=== PATIENT | female | born 1960 | race Caucasian/White ===

== ENCOUNTER 2016-07-05 11:30 | Observation (INO) | payer OTHER ==
[~2016-07-05] VITALS: Ht 177.8 cm; Wt 70.0 kg
[~2016-07-05 11:30] MED LIST: PROM25TA5 PO; ULTR50TA5 PO
[2016-07-05 11:32] VITALS: BP 122/75; PULSE 85; RESP 14; TEMP 97.9; O2SAT 97
--- NOTE | 2016-07-05 14:29 | PD ---
HPI Chief Complaint: GI Complaint Time Seen by Provider: 14:25 Travel History International Travel<30 days: No Contact w/Intl Traveler<30days: No Traveled to known affect area: No History of Present Illness HPI Patient is a 55-year-old female presenting to the chart evaluation of nausea, vomiting, diarrhea, abdominal pain. Patient states her symptoms started around 11 PM last night. She reports seeing dark red blood in her stools, she states she believes is from her hemorrhoids and the fact that she's been having such frequent bowel movements. Patient states this is the fourth time this has happened in this month, usually her symptoms will last for 2 days. She was at her primary doctor's office the last time this happened and he prescribed Zofran. There were no stool studies performed. Patient denies any fevers but reports chills. Patient had a bowel resection secondary to colon cancer in January 2016. She has not had any chemotherapy or radiation. Dr. Gonzalez was a surgeon for that operation. Her primary care providers Dr. Jaffe. [facility] Past Medical History Cancer: Yes (:) Cardiovascular Problems: No Diabetes: No Endocrine: No Genitourinary: No Hepatitis: No Hiatal Hernia: No Immune Disorder: No Musculoskeletal: No Neurologic: No Psychiatric: Yes Reproductive: No Respiratory: No Thyroid Disease: No ?: Not Menopausal: Yes Past Surgical History Abdominal Surgery: Yes (EXP LAP S/P RUPTURED CYST 1987) AICD: No Gynecologic Surgery: Yes Joint Replacement: No Pacemaker: No Other Surgery: Yes (bowel resection) Social History Alcohol Use: Yes (APPROX 1-2 PER WEEK) Tobacco Use: No Substance Use: No Allergies-Medications (Allergen,Severity, Reaction): Coded Allergies: Penicillin (Verified Allergy, Unknown, CHILDHOOD, 03/23/16) Reported Meds & Prescriptions Reported Meds & Active Scripts Active Phenergan (Promethazine HCl) 25 Mg Tab 25 Mg PO Q6H PRN Review of Systems Except as stated in HPI: all other systems reviewed are Neg General / Constitutional: Positive: Chills HENT: No: Headaches Cardiovascular: No: Chest Pain or Discomfort Respiratory: No: Shortness of Breath Gastrointestinal: Positive: Nausea, Vomiting, Diarrhea, Abdominal Pain Genitourinary: No: Dysuria Neurologic: Positive: Weakness, No: Dizziness, Syncope, Focal Abnormalities Physical Exam Narrative GENERAL: Well-developed, well-nourished, alert female. Appears ill, in no acute distress. SKIN: Warm and dry. HEAD: Atraumatic. Normocephalic. EYES: Pupils equal and round. No scleral icterus. No injection or drainage. ENT: No nasal bleeding or discharge. Mucous membranes pink and moist. NECK: Trachea midline. No JVD. CARDIOVASCULAR: Regular rate and rhythm. No murmur appreciated. RESPIRATORY: No accessory muscle use. Clear to auscultation. Breath sounds equal bilaterally. GASTROINTESTINAL: Abdomen soft, tender to palpation in bilateral lower quadrants. Hepatic and splenic margins not palpable. Abdomen bowel sounds. Positive guarding, no rebound. MUSCULOSKELETAL: No obvious deformities. No clubbing. No cyanosis. No edema. NEUROLOGICAL: Awake and alert. No obvious cranial nerve deficits. Motor grossly within normal limits. Normal speech. PSYCHIATRIC: Appropriate mood and affect; insight and judgment normal. Data Data Last Documented VS Vital Signs Date Time Temp Pulse Resp B/P Pulse Ox O2 Delivery O2 Flow Rate FiO2 07/05/16 18:12 84 18 104/72 97 Room Air 07/05/16 11:32 97.9 Orders Complete Blood Count With Diff (07/05/16 14:23) Comprehensive Metabolic Panel (07/05/16 14:23) Lipase (07/05/16 14:23) Lactic Acid (07/05/16 14:23) Urinalysis - C+S If Indicated (07/05/16 14:23) Abdomen, Kub Only (07/05/16 14:23) Ondansetron Inj (Zofran Inj) (07/05/16 16:15) Sodium Chlor 0.9% 1000 Ml Inj (Ns 1000 M (07/05/16 16:15) Sodium Chlor 0.9% 1000 Ml Inj (Ns 1000 M (07/05/16 16:15) Ct Abd/Pel W Iv Contrast(Rout) (07/05/16 ) Morphine Inj (Morphine Inj) (07/05/16 16:45) Iohexol 350 Inj (Omnipaque 350 Inj) (07/05/16 17:10) C Diff Toxin Pcr (07/05/16 18:35) Ciprofloxacin 400 Mg Premix (Cipro 400 M (07/05/16 18:45) Metronidazole 500 Mg Inj (Flagyl 500 Mg (07/05/16 18:45) Consult Colorectal Surgery (07/05/16 ) Admit Order (Ed Use Only) (07/05/16 19:16) Labs Laboratory Tests Test 07/05/16 15:40 White Blood Count 15.4 TH/MM3 Red Blood Count 5.03 MIL/MM3 Hemoglobin 15.2 GM/DL Hematocrit 43.3 % Mean Corpuscular Volume 86.1 FL Mean Corpuscular Hemoglobin 30.3 PG Mean Corpuscular Hemoglobin 35.2 % Concent Red Cell Distribution Width 13.4 % Platelet Count 388 TH/MM3 Mean Platelet Volume 7.8 FL Neutrophils (%) (Auto) 87.8 % Lymphocytes (%) (Auto) 5.3 % Monocytes (%) (Auto) 6.4 % Eosinophils (%) (Auto) 0.2 % Basophils (%) (Auto) 0.3 % Neutrophils # (Auto) 13.5 TH/MM3 Lymphocytes # (Auto) 0.8 TH/MM3 Monocytes # (Auto) 1.0 TH/MM3 Eosinophils # (Auto) 0.0 TH/MM3 Basophils # (Auto) 0.1 TH/MM3 CBC Comment DIFF FINAL Differential Comment Sodium Level 139 MEQ/L Potassium Level 4.2 MEQ/L Chloride Level 105 MEQ/L Carbon Dioxide Level 24.0 MEQ/L Anion Gap 10 MEQ/L Blood Urea Nitrogen 14 MG/DL Creatinine 1.01 MG/DL Estimat Glomerular Filtration 57 ML/MIN Rate Random Glucose 91 MG/DL Lactic Acid Level 1.2 mmol/L Calcium Level 9.1 MG/DL Total Bilirubin 0.8 MG/DL Aspartate Amino Transf 17 U/L (AST/SGOT) Alanine Aminotransferase 22 U/L (ALT/SGPT) Alkaline Phosphatase 94 U/L Total Protein 7.8 GM/DL Albumin 3.7 GM/DL Lipase 147 U/L MDM Medical Decision Making Medical Screen Exam Complete: Yes Emergency Medical Condition: Yes Medical Record Reviewed: Yes Interpretation(s) Vital Signs Date Time Temp Pulse Resp B/P Pulse Ox O2 Delivery O2 Flow Rate FiO2 07/05/16 11:32 97.9 85 14 122/75 97 Differential Diagnosis Bowel obstruction versus gastroenteritis versus C. difficile versus irritable bowel syndrome versus other Narrative Course Patient is a 55-year-old female presenting to emergency room for evaluation of diarrhea, abdominal pain, nausea, vomiting. Patient has had several bouts similar to this over the last month. She was evaluated by her primary care provider who prescribed Zofran. Patient states she is unable to keep that down at this time. Workup initiated in triage, care patient be transferred to provider when a medical bed is available. Sharon Maya Jul 05, 2016 14:29
--- NOTE | 2016-07-05 14:56 | RADRPT ---
EXAM DATE/TIME: 07/05/2016 14:40 [facility] COMPARISON: No previous studies available for comparison. INDICATIONS : Abdominal pain. MEDICAL HISTORY : Diverticulitis. SURGICAL HISTORY : Colon resection. ENCOUNTER: Initial ACUITY: 1 month PAIN SCORE: 6/10 LOCATION: Bilateral lower quadrant abdomen FINDINGS: Supine view of the abdomen was performed. The abdominal bowel gas pattern is normal. No abnormal ma sses, calcifications, or organomegaly is seen. The osseous structures are unremarkable. Copious amou nt of stool in the rectum. CONCLUSION: Copious stool in the rectum. Jose Obrien MD on July 05, 2016 at 14:53 Board Certified Radiologist. This report was verified electronically.
[2016-07-05 15:51] VITALS: BP 91/51; PULSE 72; RESP 14; O2SAT 97
[2016-07-05 15:59] LABS: AUTOMATED NEUTROPHIL # 13.5 TH/MM3 (1.8-7.7); BASOPHIL # 0.1 TH/MM3 (0-0.2); BASOPHIL % 0.3 % (0.0-2.0); EOSINOPHIL % 0.2 % (0.0-4.0); HEMATOCRIT 43.3 % (35.0-46.0); HEMO FLAGS DIFF FINAL; LYMPH % 5.3 % (9.0-44.0); LYMPHOCYTE # 0.8 TH/MM3 (1.0-4.8); MEAN CELL VOLUME 86.1 FL (80.0-100.0); MEAN CORPUSCULAR HEMOGLOBIN 30.3 PG (27.0-34.0); MEAN CORPUSCULAR HGB CONC 35.2 % (32.0-36.0); MONO % 6.4 % (0.0-8.0); NEUT % 87.8 % (16.0-70.0); PLATELET COUNT 388 TH/MM3 (150-450); RED BLOOD COUNT 5.03 MIL/MM3 (4.00-5.30); RED CELL DISTRIBUTION WIDTH 13.4 % (11.6-17.2); WHITE BLOOD COUNT 15.4 TH/MM3 (4.0-11.0)
[2016-07-05] MEDS ORDERED: SODIUM CHLOR 0.9% 1000 ML INJ 1,000 ML IV ONE ×2 (16:15)
[2016-07-05] MEDS ORDERED: ONDANSETRON HCL 4 MG/2 ML VIAL IV ONE (16:15)
--- NOTE | 2016-07-05 16:25 | PD ---
Data Data Last Documented VS Orders Complete Blood Count With Diff (07/05/16 14:23) Comprehensive Metabolic Panel (07/05/16 14:23) Lipase (07/05/16 14:23) Lactic Acid (07/05/16 14:23) Urinalysis - C+S If Indicated (07/05/16 14:23) Abdomen, Kub Only (07/05/16 14:23) Ondansetron Inj (Zofran Inj) (07/05/16 16:15) Sodium Chlor 0.9% 1000 Ml Inj (Ns 1000 M (07/05/16 16:15) Sodium Chlor 0.9% 1000 Ml Inj (Ns 1000 M (07/05/16 16:15) Ct Abd/Pel W Iv Contrast(Rout) (07/05/16 ) Morphine Inj (Morphine Inj) (07/05/16 16:45) Iohexol 350 Inj (Omnipaque 350 Inj) (07/05/16 17:10) Ciprofloxacin 400 Mg Premix (Cipro 400 M (07/05/16 18:45) Metronidazole 500 Mg Inj (Flagyl 500 Mg (07/05/16 18:45) Admit Order (Ed Use Only) (07/05/16 19:16) Labs MDM Supervised Visit with NIESHA: Yes Narrative Course Assumed care of patient. Is a 55-year-old woman who is a history of a bowel resection for colon cancer in March [address] Gonzalez found on screening colonoscopy, not requiring chemotherapy or radiation therapy. She did well. She states that she no longer has a reservoir stool and has urgency when she defecates, but had been her usual state health until the past month. For the past month she had intermittent bouts of nausea vomiting diarrhea and lower abdominal pain. She saw her primary doctor, Dr. Jaffe, place her on some Zofran. She had worsening symptoms over the past week and so she came to the emergency department. She's also noticed some blood in her stool sutured a hemorrhoid that she has. On exam: Patient looks generally well. She is moderate lower abdominal tenderness to palpation. On rectal exam she has one inflamed hemorrhoid at is a little bit ulcerated. She has soft stool in the rectal vault without obvious impaction. Studies show: LABS: CBC remarkable for mild leukocytosis. CMP pending Lactate pending Lipase pending Abdominal x-ray demonstrated copious stool in the rectum. Scripts Metronidazole (Flagyl)500 Mg [id number] Mg PO TID #15 TAB Ref 0 Prov:Afshan Telles 07/07/16 Levofloxacin (Levaquin)500 Mg [id number] Mg PO DAILY #5 TAB Ref 0 Prov:[place],Afshan MORROW 07/07/16 Shaquille Campos MD Jul 05, 2016 16:24 Eosinophils (%) (Auto) 0.2 % Basophils (%) (Auto) 0.3 % Neutrophils # (Auto) 13.5 TH/MM3 Lymphocytes # (Auto) 0.8 TH/MM3 Monocytes # (Auto) 1.0 TH/MM3 Eosinophils # (Auto) 0.0 TH/MM3 Basophils # (Auto) 0.1 TH/MM3 CBC Comment DIFF FINAL Differential Comment MDM Supervised Visit with NIESHA: Yes Narrative Course Assumed care of patient. Is a 55-year-old woman who is a history of a bowel resection for colon cancer in March [address] Gonzalez found on screening colonoscopy, not requiring chemotherapy or radiation therapy. She did well. She states that she no longer has a reservoir stool and has urgency when she defecates, but had been her usual state health until the past month. For the past month she had intermittent bouts of nausea vomiting diarrhea and lower abdominal pain. She saw her primary doctor, Dr. Jaffe, place her on some Zofran. She had worsening symptoms over the past week and so she came to the emergency department. She's also noticed some blood in her stool sutured a hemorrhoid that she has. On exam: Patient looks generally well. She is moderate lower abdominal tenderness to palpation. On rectal exam she has one inflamed hemorrhoid at is a little bit ulcerated. She has soft stool in the rectal vault without obvious impaction. Studies show: LABS: CBC remarkable for mild leukocytosis. CMP pending Lactate pending Lipase pending Abdominal x-ray demonstrated copious stool in the rectum. Shaquille Campos MD Jul 05, 2016 16:24
[2016-07-05] MEDS ORDERED: MORPHINE SULFATE 4 MG/ML INJ IV PUSH ONE ×2 (16:45→19:30)
[2016-07-05 16:53] LABS: ALKALINE PHOSPHATASE 94 U/L (45-117); ALT (GPT) 22 U/L (10-53); ANION GAP 10 MEQ/L (5-15); AST (GOT) 17 U/L (15-37); BLOOD UREA NITROGEN 14 MG/DL (7-18); CHLORIDE 105 MEQ/L (98-107); GLOMERULAR FILTRATION RATE 57 ML/MIN (>89); POTASSIUM 4.2 MEQ/L (3.5-5.1); SODIUM (NA) 139 MEQ/L (136-145); TOTAL BILIRUBIN ADULT 0.8 MG/DL (0.2-1.0)
[2016-07-05] MEDS ORDERED: IOHEXOL 350 MG/ML 10 ML VIAL (for RAD DIAG) IV ONE (17:10)
--- NOTE | 2016-07-05 17:24 | RADRPT ---
EXAM DATE/TIME: 07/05/2016 17:03 [facility] COMPARISON: CT ABDOMEN & PELVIS W CONTRAST, March 30, 2011, 12:57. INDICATIONS : Nausea, vomiting, diarrhea, and diffuse abdominal pain. IV CONTRAST: 97 cc Omnipaque 350 (iohexol) IV ORAL CONTRAST: No oral contrast ingested. RADIATION DOSE: 7.35 CTDIvol (mGy) MEDICAL HISTORY : None Carcinoma, colon. SURGICAL HISTORY : [employer] surgery. Colon tumor removal. ENCOUNTER: Initial ACUITY: 2 days PAIN SCALE: 4/10 LOCATION: Diffuse abdomen/pelvis TECHNIQUE: Volumetric scanning of the abdomen and pelvis was performed. Using automated exposure control and ad justment of the mA and/or kV according to patient size, radiation dose was kept as low as reasonably achievable to obtain optimal diagnostic quality images. FINDINGS: LOWER LUNGS: The visualized lower lungs are clear. LIVER: Liver is hypodense compared to the spleen. A wedged shaped area in the right hepatic lobe has similar density to the spleen. There are no discrete suspicious hepatic lesions. SPLEEN: Normal size without lesion. PANCREAS: Within normal limits. KIDNEYS: Normal in size and shape. There is no mass, stone or hydronephrosis. ADRENAL GLANDS: Within normal limits. VASCULAR: There is no aortic aneurysm. BOWEL/MESENTERY: Significant amount of retained stool is identified both in the proximal and distal colon. Along the p roximal descending colon there is focal pericolonic inflammation and a small diverticulum or extraint estinal collection of air. The is identified along the left paracolic gutter and in the pelvis. Anast omotic suture is identified in the region of the rectum which appears intact. There is no evidence of associated mass or inflammation in this area. ABDOMINAL WALL: Within normal limits. RETROPERITONEUM: There is no lymphadenopathy. BLADDER: No wall thickening or mass. REPRODUCTIVE: Within normal limits. INGUINAL: There is no lymphadenopathy or hernia. MUSCULOSKELETAL: Within normal limits for patient age. CONCLUSION: Proximal descending colon inflammatory process with pericolonic stranding and a small diverticulum or extra intestinal gas bubble. There is no adjacent abscess. Free fluid in the abdomen and pelvis. Significant amount retained stool in both the proximal and distal colon. Suspected hepatic steatosis with focal fatty sparing in the right hepatic lobe as described. No findings suspicious for metastatic disease. Homer Gayle MD on July 05, 2016 at 17:13 Board Certified Radiologist. This report was verified electronically.
[2016-07-05 18:12] VITALS: BP 104/72; PULSE 84; RESP 18; O2SAT 97
[2016-07-05] MEDS ORDERED: CIPROFLOXACIN 400 MG PREMIX 200 ML IV ONE (18:45)
[2016-07-05] MEDS ORDERED: metroNIDAZOLE 500 MG INJ 100 ML IV ONE (18:45)
--- NOTE | 2016-07-05 19:15 | PD ---
Physical Exam Date Seen by Provider: Jul 05, 2016 Data Data Last Documented VS Vital Signs Date Time Temp Pulse Resp B/P Pulse Ox O2 Delivery O2 Flow Rate FiO2 07/05/16 18:12 84 18 104/72 97 Room Air 07/05/16 11:32 97.9 Orders Complete Blood Count With Diff (07/05/16 14:23) Comprehensive Metabolic Panel (07/05/16 14:23) Lipase (07/05/16 14:23) Lactic Acid (07/05/16 14:23) Urinalysis - C+S If Indicated (07/05/16 14:23) Abdomen, Kub Only (07/05/16 14:23) Ondansetron Inj (Zofran Inj) (07/05/16 16:15) Sodium Chlor 0.9% 1000 Ml Inj (Ns 1000 M (07/05/16 16:15) Sodium Chlor 0.9% 1000 Ml Inj (Ns 1000 M (07/05/16 16:15) Ct Abd/Pel W Iv Contrast(Rout) (07/05/16 ) Morphine Inj (Morphine Inj) (07/05/16 16:45) Iohexol 350 Inj (Omnipaque 350 Inj) (07/05/16 17:10) C Diff Toxin Pcr (07/05/16 18:35) Ciprofloxacin 400 Mg Premix (Cipro 400 M (07/05/16 18:45) Metronidazole 500 Mg Inj (Flagyl 500 Mg (07/05/16 18:45) Labs Laboratory Tests Test 07/05/16 15:40 White Blood Count 15.4 TH/MM3 Red Blood Count 5.03 MIL/MM3 Hemoglobin 15.2 GM/DL Hematocrit 43.3 % Mean Corpuscular Volume 86.1 FL Mean Corpuscular Hemoglobin 30.3 PG Mean Corpuscular Hemoglobin 35.2 % Concent Red Cell Distribution Width 13.4 % Platelet Count 388 TH/MM3 Mean Platelet Volume 7.8 FL Neutrophils (%) (Auto) 87.8 % Lymphocytes (%) (Auto) 5.3 % Monocytes (%) (Auto) 6.4 % Eosinophils (%) (Auto) 0.2 % Basophils (%) (Auto) 0.3 % Neutrophils # (Auto) 13.5 TH/MM3 Lymphocytes # (Auto) 0.8 TH/MM3 Monocytes # (Auto) 1.0 TH/MM3 Eosinophils # (Auto) 0.0 TH/MM3 Basophils # (Auto) 0.1 TH/MM3 CBC Comment DIFF FINAL Differential Comment Sodium Level 139 MEQ/L Potassium Level 4.2 MEQ/L Chloride Level 105 MEQ/L Carbon Dioxide Level 24.0 MEQ/L Anion Gap 10 MEQ/L Blood Urea Nitrogen 14 MG/DL Creatinine 1.01 MG/DL Estimat Glomerular Filtration 57 ML/MIN Rate Random Glucose 91 MG/DL Lactic Acid Level 1.2 mmol/L Calcium Level 9.1 MG/DL Total Bilirubin 0.8 MG/DL Aspartate Amino Transf 17 U/L (AST/SGOT) Alanine Aminotransferase 22 U/L (ALT/SGPT) Alkaline Phosphatase 94 U/L Total Protein 7.8 GM/DL Albumin 3.7 GM/DL Lipase 147 U/L [facility] Medical Record Reviewed: Yes Supervised Visit with NIESHA: Yes Interpretation(s) Vital Signs Date Time Temp Pulse Resp B/P Pulse Ox O2 Delivery O2 Flow Rate FiO2 07/05/16 18:12 84 18 104/72 97 Room Air 07/05/16 15:51 72 14 91/51 97 Room Air 07/05/16 11:32 97.9 85 14 122/75 97 Laboratory Tests Test 07/05/16 15:40 White Blood Count 15.4 TH/MM3 (4.0-11.0) Red Blood Count 5.03 MIL/MM3 (4.00-5.30) Hemoglobin 15.2 GM/DL (11.6-15.3) Hematocrit 43.3 % (35.0-46.0) Mean Corpuscular Volume 86.1 FL (80.0-100.0) Mean Corpuscular Hemoglobin 30.3 PG (27.0-34.0) Mean Corpuscular Hemoglobin 35.2 % Concent (32.0-36.0) Red Cell Distribution Width 13.4 % (11.6-17.2) Platelet Count 388 TH/MM3 (150-450) Mean Platelet Volume 7.8 FL (7.0-11.0) Neutrophils (%) (Auto) 87.8 % (16.0-70.0) Lymphocytes (%) (Auto) 5.3 % (9.0-44.0) Monocytes (%) (Auto) 6.4 % (0.0-8.0) Eosinophils (%) (Auto) 0.2 % (0.0-4.0) Basophils (%) (Auto) 0.3 % (0.0-2.0) Neutrophils # (Auto) 13.5 TH/MM3 (1.8-7.7) Lymphocytes # (Auto) 0.8 TH/MM3 (1.0-4.8) Monocytes # (Auto) 1.0 TH/MM3 (0-0.9) Eosinophils # (Auto) 0.0 TH/MM3 (0-0.4) Basophils # (Auto) 0.1 TH/MM3 (0-0.2) CBC Comment DIFF FINAL Differential Comment Sodium Level 139 MEQ/L (136-145) Potassium Level 4.2 MEQ/L (3.5-5.1) Chloride Level 105 MEQ/L (98-107) Carbon Dioxide Level 24.0 MEQ/L (21.0-32.0) Anion Gap 10 MEQ/L (5-15) Blood Urea Nitrogen 14 MG/DL (7-18) Creatinine 1.01 MG/DL (0.50-1.00) Estimat Glomerular Filtration 57 ML/MIN (>89) Rate Random Glucose 91 MG/DL (74-106) Lactic Acid Level 1.2 mmol/L (0.4-2.0) Calcium Level 9.1 MG/DL (8.5-10.1) Total Bilirubin 0.8 MG/DL (0.2-1.0) Aspartate Amino Transf 17 U/L (15-37) (AST/SGOT) Alanine Aminotransferase 22 U/L (10-53) (ALT/SGPT) Alkaline Phosphatase 94 U/L (45-117) Total Protein 7.8 GM/DL (6.4-8.2) Albumin 3.7 GM/DL (3.4-5.0) Lipase 147 U/L (73-393) Last Impressions Abdomen X-Ray 07/05/16 1423 Signed Impressions: Service Date/Time: Tuesday, July 05, 2016 14:40 - CONCLUSION: Copious stool in the rectum. Jose Obrien MD Abdomen/Pelvis CT 07/05/16 0000 Signed Impressions: Service Date/Time: Tuesday, July 05, 2016 17:03 - CONCLUSION: Proximal descending colon inflammatory process with pericolonic stranding and a small diverticulum or extra intestinal gas bubble. There is no adjacent abscess. Free fluid in the abdomen and pelvis. Significant amount retained stool in both the proximal and distal colon. Suspected hepatic steatosis with focal fatty sparing in the right hepatic lobe as described. No findings suspicious for metastatic disease. Homer Gayle MD Narrative Course Patient is a 55-year-old female who presents to emergency room with complaints of abdominal pain with nausea vomiting diarrhea. She recently had a colon resection for colon cancer by Dr. Gonzalez's in March 2016. Patient reports that she's been having intermittent abdominal pain with increased nausea vomiting, reports diarrhea started yesterday. Patient did follow up with primary care doctor who started her on Zofran, reports that symptoms have not been helping. Denies any recent antibiotic ingestion. Patient here for evaluation of abdominal pain with nausea vomiting diarrhea. CBC & BMP Diagram 07/05/16 15:40 Last Impressions Abdomen X-Ray 07/05/16 1423 Signed Impressions: Service Date/Time: Tuesday, July 05, 2016 14:40 - CONCLUSION: Copious stool in the rectum. Jose Obrien MD Abdomen/Pelvis CT 07/05/16 0000 Signed Impressions: Service Date/Time: Tuesday, July 05, 2016 17:03 - CONCLUSION: Proximal descending colon inflammatory process with pericolonic stranding and a small diverticulum or extra intestinal gas bubble. There is no adjacent abscess. Free fluid in the abdomen and pelvis. Significant amount retained stool in both the proximal and distal colon. Suspected hepatic steatosis with focal fatty sparing in the right hepatic lobe as described. No findings suspicious for metastatic disease. Homer Gayle MD I reviewed all labs and all studies with patient in detail. Patient with colitis. Case is reviewed with Dr. Carlos pt's colorectal surgeon. Case also reviewed with Dr. Osacr accepts patient to service. Request that patient be admitted under Dr. Krueger Physician Communication Physician Communication Case reviewed with Dr. Oscar as well as Dr. Gonzalez's Diagnosis Primary Impression: Colitis Admitting Information Admitting Physician Requests: Admit Afshan Goel DO Jul 05, 2016 19:15
[2016-07-05 19:26] VITALS: BP 108/72; PULSE 80; RESP 18; O2SAT 97
[2016-07-05 20:44] VITALS: BP 88/55; PULSE 75; RESP 16; O2SAT 98
--- NOTE | 2016-07-05 20:52 | HHI.HP ---
HPI Service [facility] Hospitalists Primary Care Physician Camden Jaffe MD Admission Diagnosis Colitis Chief Complaint: abd pain, diarrhea, n/v Travel History International Travel<30 Days: No Contact w/Intl Traveler <30 Da: No Traveled to Known Affected Are: No History of Present Illness Patient is a 55-year-old female with history of rectosigmoid carcinoma presenting to the ER for evaluation of nausea, vomiting, diarrhea, abdominal pain. Patient states her symptoms started around 11 PM last night. She reports seeing dark red blood in her stools, which she states she believes is from her hemorrhoids and the fact that she's been having such frequent bowel movements. Patient states this is the fourth time this has happened in this month. Usually her symptoms will last for 2 to 3 days. She was at her primary doctor's office the last time this happened and he prescribed Zofran. There were no stool studies performed. Patient denies any fevers but reports chills. Patient had a partial bowel resection secondary to colon cancer in March 2016. She has not had any chemotherapy or radiation. Dr. Gonzalez was a surgeon for that operation. Her primary care providers Dr. Jaffe. Last episode of vomiting was earlier today. She has been having multiple episodes of diarrhea over the last 24 hours. No foreign travel. Reportedly has distant history of diverticulitis as well. Review of Systems Constitutional: COMPLAINS OF: Fatigue, Weight loss, Chills, DENIES: Diaphoretic episodes, Fever, Weight gain, Dizziness, Change in appetite, Night Sweats Eyes: DENIES: Blurred vision, Diplopia, Eye inflammation, Eye pain, Vision loss , Photosensitivity, Double Vision Ears, nose, mouth, throat: DENIES: Tinnitus, Hearing loss, Vertigo, Nasal discharge, Oral lesions, Throat pain, Hoarseness, Ear Pain, Running Nose, Epistaxis, Sinus Pain, Toothache, Odynophagia Respiratory: DENIES: Apneas, Cough, Snoring, Wheezing, Hemoptysis, Sputum production, Shortness of breath Cardiovascular: DENIES: Chest pain, Palpitations, Syncope, Dyspnea on Exertion , PND, Lower Extremity Edema, Orthopnea, Claudication Gastrointestinal: COMPLAINS OF: Abdominal pain, Bloody stools, BRB per rectum, Diarrhea, Nausea, Vomiting, DENIES: Black stools, Constipation, GERD, Reflux, Difficulty Swallowing, Anorexia, See HPI Musculoskeletal: COMPLAINS OF: Joint pain Integumentary: DENIES: Abnormal pigmentation, Pruritus, Rash, Nail changes, Breast masses, Breast skin changes, Nipple discharge Hematologic/lymphatic: DENIES: Bruising, Lymphadenopathy Immunologic/allergic: DENIES: Eczema, Urticaria Neurologic: DENIES: Abnormal gait, Headache, Localized weakness, Paresthesias, Seizures, Speech Problems, Tremor, Poor Balance Psychiatric: COMPLAINS OF: Anxiety Past Family Social History Past Medical History Diverticulitis in 2009 Rectosigmoid 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 Fatty liver Past Surgical History Cyst removal from fallopian tubes Exploratory lap with proctosigmoidectomy and reanastomosis in March 2016 Reported Medications Zofran 8 mg every 6 hours when necessary nausea vomiting Multivitamin once a day Culturelle once a day Biotin 600 mg a day Allergies: Coded Allergies: Penicillin (Verified Allergy, Unknown, CHILDHOOD, 03/23/16) Family History Father had Parkinson's and prostate cancer Social History No cigarette smoking since 2004 but smoked half pack per day for 14 years prior that Drinks alcohol about 3 drinks per week Works in [employer] Physical Exam Vital Signs Vital Signs Date Time Temp Pulse Resp B/P Pulse Ox O2 Delivery O2 Flow Rate FiO2 07/05/16 19:26 80 18 108/72 97 Room Air 07/05/16 18:12 84 18 104/72 97 Room Air 07/05/16 15:51 72 14 91/51 97 Room Air 07/05/16 11:32 97.9 85 14 122/75 97 Physical Exam GENERAL: This is a well-nourished, well-developed patient, in mild distress regarding abdominal pain. SKIN: No rashes, ecchymoses or lesions. Cool and dry. HEAD: Atraumatic. Normocephalic. No temporal or scalp tenderness. EYES: Pupils equal round and reactive. Extraocular motions intact. No scleral icterus. No injection or drainage. ENT: Nose without bleeding, purulent drainage or septal hematoma. Airway patent. NECK: Trachea midline. No JVD or lymphadenopathy. Supple, nontender, no meningeal signs. CARDIOVASCULAR: Regular rate and rhythm without murmurs, gallops, or rubs. RESPIRATORY: Clear to auscultation. Breath sounds equal bilaterally. No wheezes , rales, or rhonchi. GASTROINTESTINAL: Abdomen soft, mildly distended, mild tenderness to palpation in left lower quadrant. No guarding. Bowel sounds normal. MUSCULOSKELETAL: Extremities without clubbing, cyanosis, or edema. No joint tenderness, effusion, or edema noted. No calf tenderness. NEUROLOGICAL: Awake and alert. Cranial nerves II through XII intact. Motor and sensory grossly within normal limits. Five out of 5 muscle strength in all muscle groups. Normal speech. Laboratory Laboratory Tests Test 07/05/16 15:40 White Blood Count 15.4 Red Blood Count 5.03 Hemoglobin 15.2 Hematocrit 43.3 Mean Corpuscular Volume 86.1 Mean Corpuscular Hemoglobin 30.3 Mean Corpuscular Hemoglobin 35.2 Concent Red Cell Distribution Width 13.4 Platelet Count 388 Mean Platelet Volume 7.8 Neutrophils (%) (Auto) 87.8 Lymphocytes (%) (Auto) 5.3 Monocytes (%) (Auto) 6.4 Eosinophils (%) (Auto) 0.2 Basophils (%) (Auto) 0.3 Neutrophils # (Auto) 13.5 Lymphocytes # (Auto) 0.8 Monocytes # (Auto) 1.0 Eosinophils # (Auto) 0.0 Basophils # (Auto) 0.1 CBC Comment DIFF FINAL Differential Comment Sodium Level 139 Potassium Level 4.2 Chloride Level 105 Carbon Dioxide Level 24.0 Anion Gap 10 Blood Urea Nitrogen 14 Creatinine 1.01 Estimat Glomerular Filtration 57 Rate Random Glucose 91 Lactic Acid Level 1.2 Calcium Level 9.1 Total Bilirubin 0.8 Aspartate Amino Transf 17 (AST/SGOT) Alanine Aminotransferase 22 (ALT/SGPT) Alkaline Phosphatase 94 Total Protein 7.8 Albumin 3.7 Lipase 147 Result Diagram: 07/05/16 1540 07/05/16 1540 Imaging Last 72 hours Impressions Abdomen X-Ray 07/05/16 1423 Signed Impressions: Service Date/Time: Tuesday, July 05, 2016 14:40 - CONCLUSION: Copious stool in the rectum. Jose Obrien MD Abdomen/Pelvis CT 07/05/16 0000 Signed Impressions: Service Date/Time: Tuesday, July 05, 2016 17:03 - CONCLUSION: Proximal descending colon inflammatory process with pericolonic stranding and a small diverticulum or extra intestinal gas bubble. There is no adjacent abscess. Free fluid in the abdomen and pelvis. Significant amount retained stool in both the proximal and distal colon. Suspected hepatic steatosis with focal fatty sparing in the right hepatic lobe as described. No findings suspicious for metastatic disease. Homer Gayle MD Assessment and Plan Problem List: (1) Colitis Status: Acute Plan: We'll provide IV fluid, pain medication, anti-emetic, antibiotics and one dose of steroid. We'll have Dr. Gonzalez see the patient given her relative the recent surgery and recent history of recto sigmoid carcinoma. Code Status Full Discussed Condition With Patient and her Physician Certification 2 Midnight Certification Type: Admission for Inpatient Services Order for Inpatient Services The services are ordered in accordance with Medicare regulations or non- Medicare payer requirements, as applicable. In the case of services not specified as inpatient-only, they are appropriately provided as inpatient services in accordance with the 2-midnight benchmark. Estimated LOS (days): 2 days is the estimated time the patient will need to remain in the hospital, assuming treatment plan goals are met and no additional complications. Post-Hospital Plan: Home Adarsh Oscar MD PhD Jul 05, 2016 20:52
[2016-07-05] MEDS ORDERED: MORPHINE SULFATE 4 MG/ML INJ IV PUSH PRN (21:00)
[2016-07-05] MEDS ORDERED: methylPREDNISolone SOD SUCC 40 MG/1 ML VIAL IV PUSH ONE (21:00)
[2016-07-05] MEDS ORDERED: ONDANSETRON HCL 4 MG/2 ML VIAL IV PUSH PRN (21:00)
[2016-07-05] MEDS: SODIUM CHLOR 0.9% 1000 ML INJ 1,000 ML IV SCH (21:15)
[2016-07-05 22:51] VITALS: BP 97/53; PULSE 79; RESP 18; TEMP 98.3; O2SAT 94
[2016-07-06] MEDS: LEVOFLOXACIN 500 MG PREMIX INJ 100 ML IV SCH (02:03)
[2016-07-06 02:33] LABS: BLOOD, URINE NEG (NEG); COMMENT (UR) CULT NOT INDICATED; CULTURE IF INDICATED CULT NOT INDICATED; GLUCOSE,URINE NEG (NEG); HYALINE CAST, URINE 2 /lpf (RARE); KETONE, URINE 10 mg/dL (NEG); MUCUS URINE FEW /lpf (OCC); NITRITE,URINE NEG (NEG); PH, URINE 5.5 (5.0-8.5); SQUAMOUS EPITHELIAL CELL URINE 3 /hpf (0-5); URINE COLOR YELLOW (YELLW/STRAW)
[2016-07-06] MEDS: metroNIDAZOLE 500 MG INJ 100 ML IV SCH ×3 (03:04→21:20)
[2016-07-06 05:32] LABS: AUTOMATED NEUTROPHIL # 13.3 TH/MM3 (1.8-7.7); BASOPHIL % 0.1 % (0.0-2.0); HEMATOCRIT 38.9 % (35.0-46.0); HEMO FLAGS DIFF FINAL; LYMPH % 3.5 % (9.0-44.0); LYMPHOCYTE # 0.5 TH/MM3 (1.0-4.8); MEAN CELL VOLUME 87.5 FL (80.0-100.0); MEAN CORPUSCULAR HEMOGLOBIN 28.8 PG (27.0-34.0); MEAN CORPUSCULAR HGB CONC 32.9 % (32.0-36.0); MONO % 2.3 % (0.0-8.0); NEUT % 94.1 % (16.0-70.0); PLATELET COUNT 319 TH/MM3 (150-450); RED BLOOD COUNT 4.44 MIL/MM3 (4.00-5.30); RED CELL DISTRIBUTION WIDTH 13.4 % (11.6-17.2); WHITE BLOOD COUNT 14.1 TH/MM3 (4.0-11.0)
[2016-07-06 05:47] LABS: BICARBONATE 23.3 MEQ/L (21.0-32.0); POTASSIUM 4.3 MEQ/L (3.5-5.1)
[2016-07-06 05:50] VITALS: BP 95/55; PULSE 71; RESP 18; TEMP 97.5; O2SAT 94
[2016-07-06 07:42] VITALS: BP 95/58; PULSE 70; RESP 20; TEMP 98; O2SAT 95
[2016-07-06] MEDS: SODIUM CHLOR 0.9% 1000 ML INJ 1,000 ML IV SCH (08:15)
[2016-07-06 11:34] VITALS: BP 99/63; PULSE 70; RESP 20; TEMP 97.5; O2SAT 93
[2016-07-06] MEDS ORDERED: MAGNESIUM CITRATE SOLN 300 ML BTL PO ONE (11:45)
--- NOTE | 2016-07-06 12:33 | HHI.PR ---
Subjective Remarks pt with less nausea. Objective Vitals heart reg lung cta abd diffuse tenderness worse in lower quadrants. no rebound. bs ext no edema Vital Signs Date Time Temp Pulse Resp B/P Pulse Ox O2 Delivery O2 Flow Rate FiO2 07/06/16 11:34 97.5 70 20 99/63 93 07/06/16 07:42 98.0 70 20 95/58 95 07/06/16 05:50 97.5 71 18 95/55 94 07/06/16 02:13 16 07/05/16 22:51 98.3 79 18 97/53 94 07/05/16 20:44 75 16 88/55 98 Room Air 07/05/16 19:26 80 18 108/72 97 Room Air 07/05/16 18:12 84 18 104/72 97 Room Air 07/05/16 15:51 72 14 91/51 97 Room Air 07/05/16 07/05/16 07/06/16 15:00 23:00 07:00 Output Total 350 ml Balance -350 ml Output Urine Total 350 ml # Voids 1 Result Diagram: 07/06/16 0436 07/06/16 0436 Imaging Last 72 hours Impressions Abdomen X-Ray 07/05/16 1423 Signed Impressions: Service Date/Time: Tuesday, July 05, 2016 14:40 - CONCLUSION: Copious stool in the rectum. Jose Obrien MD Abdomen/Pelvis CT 07/05/16 0000 Signed Impressions: Service Date/Time: Tuesday, July 05, 2016 17:03 - CONCLUSION: Proximal descending colon inflammatory process with pericolonic stranding and a small diverticulum or extra intestinal gas bubble. There is no adjacent abscess. Free fluid in the abdomen and pelvis. Significant amount retained stool in both the proximal and distal colon. Suspected hepatic steatosis with focal fatty sparing in the right hepatic lobe as described. No findings suspicious for metastatic disease. Homer Gayle MD A/P Problem List: (1) Colitis Status: Acute Plan: Pt reportedly developed diarrhea at home. Then began taking immodium and became more constipated. CT shows alot of stool in colon with some descending colon inflammatory changes as well as areas of air fluid levels. her wbc was 15k on admission. Hx of rectosigmoid ca s/p resection. Pt seen by dr Gonzalez. plan to give mag citrate and enema to clear significant amount of stool. will check stool studies. on IVF. advance diet as tolerated. (2) Constipation Status: Acute Plan: see above (3) Rectosigmoid cancer Status: Resolved Gopal Jones MD Jul 06, 2016 12:33
[2016-07-06 15:58] VITALS: BP 105/64; PULSE 78; RESP 20; TEMP 97.8; O2SAT 97
[2016-07-06 17:38] LABS: C. DIFF EPI 027 PRESUMPTIVE NEGATIVE (NEGATIVE); C. DIFF TOXIN PCR NEGATIVE (NEGATIVE)
[2016-07-06] MEDS ORDERED: PETROLEUM/SHARK LIVER OIL 60 GM TUBE RECTAL PRN (19:15)
--- NOTE | 2016-07-06 22:17 | HHI.PR ---
Subjective Remarks C/R Surg Events reviewed C/O diarrhea/abd pain taking imodium Objective - Vital Signs Date Time Temp Pulse Resp B/P Pulse Ox O2 Delivery O2 Flow Rate FiO2 07/06/16 15:58 97.8 78 20 105/64 97 07/05/16 20:44 Room Air Result Diagram: 07/06/1643507/06/16 043 Other Results PE alert Abd - soft, fullness RLQ, mildly tender A/P Assessment and Plan Imp: constipation - CT shows lg am't stool try lax, enemas Reji Segura MD Jul 06, 2016 22:17
[2016-07-07 01:46] VITALS: BP 126/74; PULSE 88; RESP 18; TEMP 97.9; O2SAT 97
[2016-07-07] MEDS: LEVOFLOXACIN 500 MG PREMIX INJ 100 ML IV SCH (02:24)
[2016-07-07] MEDS: metroNIDAZOLE 500 MG INJ 100 ML IV SCH ×2 (03:18→11:24)
[2016-07-07 04:03] VITALS: BP 105/52; PULSE 73; RESP 18; TEMP 98.2; O2SAT 96
[2016-07-07 05:01] LABS: AUTOMATED NEUTROPHIL # 9.1 TH/MM3 (1.8-7.7); BASOPHIL # 0.1 TH/MM3 (0-0.2); BASOPHIL % 0.9 % (0.0-2.0); EOSINOPHIL # 0.1 TH/MM3 (0-0.4); EOSINOPHIL % 0.9 % (0.0-4.0); HEMATOCRIT 36.2 % (35.0-46.0); HEMO FLAGS DIFF FINAL; LYMPH % 11.5 % (9.0-44.0); LYMPHOCYTE # 1.4 TH/MM3 (1.0-4.8); MEAN CELL VOLUME 87.2 FL (80.0-100.0); MEAN CORPUSCULAR HEMOGLOBIN 29.5 PG (27.0-34.0); MEAN CORPUSCULAR HGB CONC 33.8 % (32.0-36.0); MONO % 9.3 % (0.0-8.0); NEUT % 77.4 % (16.0-70.0); PLATELET COUNT 301 TH/MM3 (150-450); RED BLOOD COUNT 4.15 MIL/MM3 (4.00-5.30); RED CELL DISTRIBUTION WIDTH 13.4 % (11.6-17.2); WHITE BLOOD COUNT 11.7 TH/MM3 (4.0-11.0)
[2016-07-07 07:39] VITALS: BP 93/59; PULSE 76; RESP 18; TEMP 98.1; O2SAT 95
--- NOTE | 2016-07-07 08:54 | HHI.PR ---
Subjective Remarks Pt reports that she had over 10 BMs yesterday and last night. She is overall feeling much better today Still some abdominal soreness Tolerating her diet. No nausea or vomiting. Objective Vitals Vital Signs Date Time Temp Pulse Resp B/P Pulse Ox O2 Delivery O2 Flow Rate FiO2 07/07/16 07:39 98.1 76 18 93/59 95 07/07/16 04:03 98.2 73 18 105/52 96 07/07/16 01:46 97.9 88 18 126/74 97 07/06/16 15:58 97.8 78 20 105/64 97 07/06/16 11:34 97.5 70 20 99/63 93 Result Diagram: 07/07/16 0417 07/06/16 0436 Other Results Laboratory Tests Test 07/05/16 07/06/16 07/06/16 07/06/16 15:40 02:10 04:36 15:08 White Blood Count 15.4 TH/MM3 14.1 TH/MM3 Red Blood Count 5.03 MIL/MM3 4.44 MIL/MM3 Hemoglobin 15.2 GM/DL 12.8 GM/DL Hematocrit 43.3 % 38.9 % Mean Corpuscular Volume 86.1 FL 87.5 FL Mean Corpuscular Hemoglobin 30.3 PG 28.8 PG Mean Corpuscular Hemoglobin 35.2 % 32.9 % Concent Red Cell Distribution Width 13.4 % 13.4 % Platelet Count 388 TH/MM3 319 TH/MM3 Mean Platelet Volume 7.8 FL 7.9 FL Neutrophils (%) (Auto) 87.8 % 94.1 % Lymphocytes (%) (Auto) 5.3 % 3.5 % Monocytes (%) (Auto) 6.4 % 2.3 % Eosinophils (%) (Auto) 0.2 % 0.0 % Basophils (%) (Auto) 0.3 % 0.1 % Neutrophils # (Auto) 13.5 TH/MM3 13.3 TH/MM3 Lymphocytes # (Auto) 0.8 TH/MM3 0.5 TH/MM3 Monocytes # (Auto) 1.0 TH/MM3 0.3 TH/MM3 Eosinophils # (Auto) 0.0 TH/MM3 0.0 TH/MM3 Basophils # (Auto) 0.1 TH/MM3 0.0 TH/MM3 CBC Comment DIFF FINAL DIFF FINAL Differential Comment Sodium Level 139 MEQ/L 139 MEQ/L Potassium Level 4.2 MEQ/L 4.3 MEQ/L Chloride Level 105 MEQ/L 107 MEQ/L Carbon Dioxide Level 24.0 MEQ/L 23.3 MEQ/L Anion Gap 10 MEQ/L 9 MEQ/L Blood Urea Nitrogen 14 MG/DL 9 MG/DL Creatinine 1.01 MG/DL 0.75 MG/DL Estimat Glomerular Filtration 57 ML/MIN 81 ML/MIN Rate Random Glucose 91 MG/DL 133 MG/DL Lactic Acid Level 1.2 mmol/L Calcium Level 9.1 MG/DL 8.5 MG/DL Total Bilirubin 0.8 MG/DL Aspartate Amino Transf 17 U/L (AST/SGOT) Alanine Aminotransferase 22 U/L (ALT/SGPT) Alkaline Phosphatase 94 U/L Total Protein 7.8 GM/DL Albumin 3.7 GM/DL Lipase 147 U/L Urine Color YELLOW Urine Turbidity CLEAR Urine pH 5.5 Urine Specific Patriot GREATER THAN 1.050 Urine Protein TRACE mg/dL Urine Glucose (UA) NEG mg/dL Urine Ketones 10 mg/dL Urine Occult Blood NEG Urine Nitrite NEG Urine Bilirubin NEG Urine Urobilinogen LESS THAN 2.0 MG/DL Urine Leukocyte Esterase NEG Urine RBC 1 /hpf Urine WBC 1 /hpf Urine Squamous Epithelial 3 /hpf Cells Urine Hyaline Casts 2 /lpf Urine Mucus FEW /lpf Microscopic Urinalysis Comment CULT NOT INDICATED Stool C. difficile Toxin (PCR) NEGATIVE Stl C. difficile Toxin PRESUMPTIVE Epiderm 027 NEGATIVE Test 07/07/16 04:17 White Blood Count 11.7 TH/MM3 Red Blood Count 4.15 MIL/MM3 Hemoglobin 12.2 GM/DL Hematocrit 36.2 % Mean Corpuscular Volume 87.2 FL Mean Corpuscular Hemoglobin 29.5 PG Mean Corpuscular Hemoglobin 33.8 % Concent Red Cell Distribution Width 13.4 % Platelet Count 301 TH/MM3 Mean Platelet Volume 8.1 FL Neutrophils (%) (Auto) 77.4 % Lymphocytes (%) (Auto) 11.5 % Monocytes (%) (Auto) 9.3 % Eosinophils (%) (Auto) 0.9 % Basophils (%) (Auto) 0.9 % Neutrophils # (Auto) 9.1 TH/MM3 Lymphocytes # (Auto) 1.4 TH/MM3 Monocytes # (Auto) 1.1 TH/MM3 Eosinophils # (Auto) 0.1 TH/MM3 Basophils # (Auto) 0.1 TH/MM3 CBC Comment DIFF FINAL Differential Comment Imaging Last 72 hours Impressions Abdomen X-Ray 07/05/16 1423 Signed Impressions: Service Date/Time: Tuesday, July 05, 2016 14:40 - CONCLUSION: Copious stool in the rectum. Jose Obrien MD Abdomen/Pelvis CT 07/05/16 0000 Signed Impressions: Service Date/Time: Tuesday, July 05, 2016 17:03 - CONCLUSION: Proximal descending colon inflammatory process with pericolonic stranding and a small diverticulum or extra intestinal gas bubble. There is no adjacent abscess. Free fluid in the abdomen and pelvis. Significant amount retained stool in both the proximal and distal colon. Suspected hepatic steatosis with focal fatty sparing in the right hepatic lobe as described. No findings suspicious for metastatic disease. Homer Gayle MD Objective Remarks General: NAD, AAOx3 Chest: CTA bilaterally Cardiac: Regular Abd: +BS, soft, nondistended, minimal generalized tenderness Ext: No edema A/P Problem List: (1) Colitis Status: Acute Plan: - Pt reportedly developed diarrhea at home. Then began taking Imodium and became more constipated. - CT shows a lot of stool in colon with some descending colon inflammatory changes as well as areas of air fluid levels. - Her WBC count was 15k on admission. This has improved today to 11,000 - Pt received enema and Mag Citrate yesterday and had multiple BMs. - She is overall feeling better today but still has some generalized abdominal discomfort. - Stool studies were negative for C. diff. - Pt tolerating regular diet. - Pt reports that Dr. Gonzalez plans to do a bedside anoscope today but will need to confirm this with Dr. Gonzalez. - Pt planned for discharge to home this afternoon. (2) Constipation Status: Acute Plan: see above (3) Rectosigmoid cancer Status: Resolved Assessment and Plan Patient examined. Assessment and plan formulated with Afshan Telles PA-C. I agree with the above. severe constipation better with laxative tolerating food. discussed with dr Gonzalez inflammatory change on descending colon d/c home and f/u. Afshan Telles Jul 07, 2016 08:54 Gopal Jones MD Jul 07, 2016 14:00
[2016-07-07] MEDS ORDERED: METR-1 PO (08:57)
[2016-07-07] MEDS ORDERED: LEVA500T PO (08:57)
--- NOTE | 2016-07-07 08:57 | HHI.DCPOC ---
Discharge Care Plan Diagnosis: (1) Constipation (2) Colitis Goals to Promote Your Health * To prevent worsening of your condition and complications * To maintain your health at the optimal level Directions to Meet Your Goals Take your medications as prescribed Follow your dietary instruction Follow activity as directed Keep your appointments as scheduled Take your immunizations and boosters as scheduled If your symptoms worsen call your PCP, if no PCP go to Urgent Care Center or Emergency Room Smoking is Dangerous to Your Health. Avoid second hand smoke Call the 24-hour hour crisis hotline for domestic abuse at Afshan Telles Jul 07, 2016 08:57
[2016-07-07 11:19] VITALS: BP 90/56; PULSE 75; RESP 20; TEMP 98.1; O2SAT 95
--- NOTE | 2016-07-07 13:15 | HHI.PR ---
Subjective Remarks C/R Surg Events reviewed C/O less abd pain good clean out Objective - Vital Signs Date Time Temp Pulse Resp B/P Pulse Ox O2 Delivery O2 Flow Rate FiO2 07/07/16 11:19 98.1 75 20 90/56 95 07/05/16 20:44 Room Air Result Diagram: 07/07/16 0417 07/06/16 0436 Objective Remarks PE alert Abd - soft, min tenderness, min tympany A/P Assessment and Plan Imp: constipation - CT shows lg am't stool try lax, enemas - good results OOB dc plans Reji Gonzalez MD Jul 07, 2016 13:15
== END 2016-07-07 13:20 | disposition home or self-care (01) ==
LOC: NEPA 11:30 → NEDA 19:19 → INTOOBSV 19:19 → UNDODISIN 19:57 → NEPGCP 22:46
PROVIDERS: ADMIT Hospitalist; ATTEND Hospitalist
DX: K52.9 Noninfective gastroenteritis and colitis, unspecified (principal); K59.00 Constipation, unspecified; C19 Malignant neoplasm of rectosigmoid junction; K57.30 Diverticulosis of large intestine without perforation or abscess without bleeding; K76.0 Fatty (change of) liver, not elsewhere classified; Z87.891 Personal history of nicotine dependence; Z88.0 Allergy status to penicillin; Z90.49 Acquired absence of other specified parts of digestive tract
CPT/HCPCS: 74000; 74177; 80048; 80053; 81001; 83605; 83690; 85025; 87493; 87506; 96361; 96374; 96375; 99285; G0378; J0744; J1956; J2270; J2405; J2920; J7030; Q9967